=== PATIENT | female | born 1960 | race Caucasian/White ===

== ENCOUNTER → 2016-12-12 | Outpatient (CLI) | payer OTHER, MEDICAID | LOC: FIMAGING 07:01 | PROVIDERS: ATTEND Internal Medicine | DX: B18.2 Chronic viral hepatitis C (principal) ==

== ENCOUNTER 2016-12-26 12:28 | Emergency (ER) | payer OTHER, MEDICAID ==
--- NOTE | 2016-12-26 13:11 | EDPHY ---
H & P Time Seen by Provider: 12/26/16 12:54 HPI/ROS: CHIEF COMPLAINT: Chest pain HISTORY OF PRESENT ILLNESS: This patient is a 56 year old female with history of hypertension and congestive heart failure complaining of sharp chest pain. She woke up with a mild headache and neck pain. The headache is similar to prior episodes of migraine headaches. She came to the hospital for a routine blood tests and when she was leaving the hospital, she developed sudden onset sharp and stabbing left-sided chest pain. The chest pain was fleeting, lasting few seconds. She had 2 subsequent episodes of sharp chest pain. She has a very mild dull ache in her chest now. No fever, shortness of breath, vomiting, extremity swelling, or other associated condition. REVIEW OF SYSTEMS: Constitutional: No fever, no chills Eyes: No visual changes ENT: No sore throat Respiratory: No cough, no shortness of breath Gastrointestinal: No nausea, no vomiting, no abdominal pain Genitourinary: No hematuria, no dysuria Musculoskeletal: No leg pain or swelling Skin: No rash Neurological: Headache, no numbness, no weakness Psychiatric: No depression Past Medical/Surgical History: 1. Congestive heart failure (Lasix) 2. Hypertension 3. Hepatitis C Social History: Lives in [place]. Smoking Status: Current every day smoker Physical Exam: General Appearance: Alert, pleasant, does not appear in pain Eyes: Pupils equal and round, no conjunctival pallor or injection ENT, Mouth: Mucous membranes moist Neck: Normal inspection Respiratory: Normal inspection, no chest wall tenderness, lungs are clear to auscultation Cardiovascular: Regular rate and rhythm Gastrointestinal: Abdomen is soft and non- tender Neurological: A&O, nonfocal, normal gait Skin: Warm and dry, no rash Extremities: Nontender, no pedal edema, negative Homans sign Psychiatric: Mood and affect normal Constitutional: Initial Vital Signs Temperature (C) 36.8 C 12/26/16 12:33 Heart Rate 81 12/26/16 12:33 Respiratory Rate 16 12/26/16 12:33 Blood Pressure 129/100 H 12/26/16 12:33 O2 Sat (%) 97 12/26/16 12:33 O2 Delivery Mode Room Air Allergies/Adverse Reactions: No Known Drug Allergies Allergy (Verified 12/26/16 12:37) Home Medications: Medication Instructions Recorded Aspirin 81mg (*) 12/26/16 Lasix 12/26/16 Medical Decision Making - Diagnostics EKG Interpretation: EKG interpreted by me reveals normal sinus rhythm, rate 74, nonspecific T abnormalities, ant-lat leads. Interpretation: normal EKG Imaging Results: Chest x-ray independently reviewed by me reveals atelectasis at the left lung base. CT pulmonary angiogram read by Dr. Giuseppe Baeza reveals no evidence of pulmonary embolism. There is a thyroid mass. Imaging: Discussed imaging studies w/ lab intern Radiologist, I viewed and interpreted images myself ED Course/Re-evaluation: 56 year old female presenting follow three episodes of sharp chest pains earlier today and headache. Stat EKG reveals no evidence of ischemia or dysrhythmia. D-dimer ordered to screen for pulmonary embolism. Ibuprofen given for headache. Headache is typical of a mild migraine headache. Reviewed chest x-ray. Prominent interstitial markings to left lung base probably representing subsegmental atelectasis or fibrotic change. D-dimer is slightly high. Plan for CTA to rule out pulmonary infarct. 15:[address] Baeza, radiologist. CTA negative for acute processes. Incidental thyroid nodule noted. Discussed with patient need to follow up with her PCP. This patient presents with atypical chest pain. After careful consideration and evaluation, I find no evidence of acute coronary syndrome. The patient has no exertional chest pain, normal EKG and normal troponin. In addition, I feel that I can safely exclude pulmonary embolism, with normal vital signs, normal oxygen saturation and no evidence of pulmonary embolism on CT scan. Chest pain most likely musculoskeletal in etiology. In addition there is no evidence of pneumothorax, pneumonia, aortic dissection. Plan to discharge home in good condition. She will follow up with primary care regarding the thyroid nodule. Return precautions discussed. The patient is comfortable with this plan. Differential Diagnosis: The differential diagnosis for the patient's chest pain included but was not limited to myocardial ischemia, pulmonary embolus, chest wall pain, pleural inflammation, and pulmonary infectious causes. - Data Points Laboratory Results: Laboratory Results 12/26/16 13:00 12/26/16 13:00 Medications Given: Discontinued Medications Ibuprofen (Motrin) 600 mg PO EDNOW ONE Stop: 12/26/16 13:59 Last Admin: 12/26/16 14:59 Dose: 600 mg Departure - Departure Disposition: Home, Routine, Self-Care Clinical Impression: Musculoskeletal chest pain, Thyroid nodule Condition: Good Instructions: Chest Pain (ED) Additional Instructions: 1. The radiologist noted a thyroid nodule on your CT. Please follow up with your primary care physician regarding this. We are ordering a test of your thyroid level in your blood. Call tomorrow for results of this test (TSH). 2. You may take 600mg ibuprofen every 6-8 hours with food as needed for pain. 3. Follow up with your primary care provider for symptoms unresolved. 4. Return to the Emergency Department if you develop recurrent chest pains, shortness of breath, or other worsening of condition. Referrals: MARKBODY,BEAU [Other] - As per Instructions Dick Mcnulty MD [Medical Doctor] - As per Instructions Report Scribed for: Fatoumata Orantes Report Scribed by: Deisy Fong Date of Report: 12/26/16 Time of Report: 13:09 Physician Review and Approval Statement: 12/26/16 13:09 Portions of this note were transcribed by a medical receptionist medical assistant. I personally performed a history, physical exam, medical decision making, and confirmed accuracy of information the transcribed note.
[2016-12-26 13:53] LABS: % IMMATURE GRANULYOCYTES 0.5 % (0.0-1.1); ABSOLUTE IMMATURE GRANULOCYTES 0.03 10^3/uL (0.00-0.10); ADD DIFF? NO; ADD MORPH? NO; ADD SCAN? NO; ATYPICAL LYMPHOCYTE FLAG 0 (0-99); FRAGMENT RBC FLAG 0 (0-99); HEMATOCRIT 42.7 % (38.0-47.0); HEMOGLOBIN 14.7 g/dL (12.6-16.3); LEFT SHIFT FLG 0 (0-99); LIPEMIA HEMOLYSIS FLAG 90 (0-99); MEAN CELL HEMOGLOBIN 30.5 pg (27.9-34.1); MEAN CELL HEMOGLOBIN CONCENTR. 34.4 g/dL (32.4-36.7); MEAN CELL VOLUME 88.6 fL (81.5-99.8); MEAN PLATELET VOLUME 10.6 fL (8.7-11.7); PLATELET CLUMPS FLAG 0 (0-99); PLATELET COUNT 212 10^3/uL (150-400); RED BLOOD CELL COUNT 4.82 10^6/uL (4.18-5.33); RED CELL DISTRIBUTION WIDTH 12.2 % (11.5-15.2)
[2016-12-26] MEDS ORDERED: IBUPROFEN 600 MG TAB PO ONE (13:58)
[2016-12-26 14:00] LABS: ANION GAP 12 mEq/L (8-16); CALCIUM 9.7 mg/dL (8.5-10.4); CARBON DIOXIDE 23 mEq/l (22-31); CHLORIDE 110 mEq/L (97-110); CREATININE 0.9 mg/dL (0.6-1.0); GLOMERULAR FILTRATION RATE > 60; GLUCOSE 63 mg/dL (70-100); POTASSIUM 4.3 mEq/L (3.5-5.2); SODIUM 145 mEq/L (134-144)
[2016-12-26 14:12] LABS: TROPONIN I < 0.012 ng/mL (0-0.034)
[2016-12-26] MEDS ORDERED: IOPAMIDOL (ISOVUE 370) 100 ML BTL IV ONE (14:20)
[2016-12-26 15:01] VITALS: BP 107/83
[2016-12-26 15:25] VITALS: PULSE 72; RESP 18; TEMP 97; O2SAT 95
--- NOTE | 2016-12-28 08:49 | CPEKG ---
Heart Rate: 74 RR Interval: 811 P-R Interval: 156 QRSD Interval: 94 QT Interval: 383 QTC Interval: 425 P [place]: 45 QRS [place]: -11 T Wave [place]: 95 EKG Severity - ABNORMAL ECG - EKG Impression: SINUS RHYTHM EKG Impression: NONSPECIFIC T ABNORMALITIES, ANT-LAT LEADS Electronically Signed By: Shade Durán 29-Dec-2016 12:46:38
== END 2016-12-26 15:28 | disposition home or self-care (01) ==
DX: R07.9 Chest pain, unspecified (principal); E04.1 Nontoxic single thyroid nodule; F17.200 Nicotine dependence, unspecified, uncomplicated; I10 Essential (primary) hypertension; I50.9 Heart failure, unspecified
CPT/HCPCS: 71020; 71275; 93005; 99285; Q9967

== ENCOUNTER 2017-07-13 05:39 | Observation (INO) | payer OTHER, MEDICAID ==
[2017-07-13] MEDS ORDERED: LR 1,000 ML IV ONE (06:21)
--- NOTE | 2017-07-13 07:08 | PDANEPAE ---
ANE Past Medical History - Cardiovascular History Hx Hypertension: Yes Hx Arrhythmias: No Hx Chest Pain: No Hx Coronary Artery / Peripheral Vascular Disease: Yes Hx CHF / Valvular Disease: Yes Hx Palpitations: No - Pulmonary History Hx COPD: No Hx Asthma/Reactive Airway Disease: No Hx Recent Upper Respiratory Infection: No Hx Oxygen in Use at Home: No Hx Sleep Apnea: No Sleep Apnea Screening Result - Last Documented: Negative - Neurologic History Hx Cerebrovascular Accident: No Hx Seizures: No Hx Dementia: No - Endocrine History Hx Diabetes: No - Renal History Hx Renal Disorders: No - Liver History Hx Hepatic Disorders: No - Neurological & Psychiatric Hx Hx Neurological and Psychiatric Disorders: No - Cancer History Hx Cancer: No - Congenital Disorder History Hx Congenital Disorders: No - GI History Hx Gastrointestinal Disorders: No - Other Health History Other Health History: Goiter. Pneumonia 05/28 - Chronic Pain History Chronic Pain: No - Surgical History Prior Surgeries: hysterectomy. . cardiac cath 2009 ANE Review of Systems Review of Systems: - Exercise capacity METS (RN): 4 METS ANE Patient History - Allergies Allergies/Adverse Reactions: morphine Allergy (Mild, Verified 07/13/17 06:37) NAUSEA - Home Medications Home Medications: Aspirin EC [Aspirin EC 81 mg (*)] 81 mg PO DAILY 07/03/17 [Last Taken 07/12/17] Atorvastatin Calcium [Lipitor 10 mg (*)] 10 mg PO DAILY 07/03/17 [Last Taken ] Carvedilol [Coreg (*)] 6.25 mg PO BIDMEAL 07/03/17 [Last Taken 07/11/17] Losartan Potassium [Cozaar 25 mg (*)] 25 mg PO DAILY 07/03/17 [Last Taken ] Multivitamins [Multivitamin (*)] 1 each PO DAILY 07/03/17 [Last Taken 07/12/17] Spironolactone [Aldactone 25 MG (*)] 25 mg PO DAILY 07/03/17 [Last Taken ] traZODone [traZODONE 50MG (*)] 50 mg PO HS PRN 07/03/17 [Last Taken 07/12/17 19: 30] - NPO status NPO Since - Liquids (Date): 07/12/17 NPO Since - Liquids (Time): 19:30 NPO Since - Solids (Date): 07/12/17 NPO Since - Solids (Time): 19:30 - Smoking Hx Smoking Status: Former smoker - Family Anes Hx Family Hx Anesthesia Complications: none ANE Labs/Vital Signs - Vital Signs Blood Pressure: 112/85 Heart Rate: 77 Respiratory Rate: 16 O2 Sat (%): 96 Height: 157.48 cm Weight: 86.183 kg ANE Physical Exam - Airway Mallampati Score: Class 3 Mouth exam: dentures - ASA Status ASA Status: III ANE Anesthesia Plan Anesthesia Plan: general endotracheal anesthesia
[2017-07-13] MEDS ORDERED: BACITRACIN ZINC 14.2 GM OINTTUBE TP ONE (07:10)
[2017-07-13] MEDS ORDERED: LIDOCAINE 1% 300 MG/30 ML SDV ONE (07:10)
[2017-07-13] MEDS ORDERED: ceFAZolin 2 GM/SWFI 2 GM/20 ML SYR IVP ONE (07:14)
--- NOTE | 2017-07-13 07:16 | PDHPUP ---
History & Physical Update H&P update statement: This history and physical update is based on an assessment of the patient which was completed after admission or registration (within 24 hours), but prior to the surgery/procedure.
[2017-07-13] MEDS ORDERED: MIDAZOLAM 2 MG/2 ML VIAL ONE (07:22)
[2017-07-13] MEDS ORDERED: PROPOFOL 200 MG/20 ML VIAL ONE (07:23)
[2017-07-13] MEDS ORDERED: fentaNYL 100 MCG/2 ML INJ ONE ×3 (07:23→12:09)
[2017-07-13] MEDS ORDERED: ONDANSETRON 4 MG/2 ML VIAL ONE ×2 (07:27→13:16)
[2017-07-13] MEDS ORDERED: PHENYLEPHRINE HCL 100 MCG/ML SYR ONE (07:27)
[2017-07-13] MEDS ORDERED: ROCURONIUM 50 MG/5 ML VIAL ONE ×2 (07:27→08:43)
[2017-07-13] MEDS ORDERED: METOCLOPRAMIDE 10 MG/2 ML VIAL ONE (07:27)
[2017-07-13] MEDS ORDERED: DEXAMETHASONE 4 MG/ML VIAL ONE ×2 (08:04)
[2017-07-13] MEDS ORDERED: SUGAMMADEX SODIUM 200 MG/2 ML VIAL IVP ONE (10:23)
[2017-07-13] MEDS ORDERED: HYDROCOD/APAP 7.5/325 IN 15ML UDCUP PO PRN (10:33)
[2017-07-13] MEDS ORDERED: THROMBIN (BOVINE) 20,000 UNIT SPRAY TP ONE (10:55)
[2017-07-13] MEDS ORDERED: LR 500 ML IV PRN (11:40)
[2017-07-13] MEDS ORDERED: PROMETHAZINE HCL 25 MG/ML INJ IVP PRN ×2 (11:40→15:37)
[2017-07-13] MEDS ORDERED: NALOXONE HCL 0.4 MG/ML INJ IVP PRN (11:40)
--- NOTE | 2017-07-13 11:41 | POSTANESTH ---
Post Anesthetic Evaluation Cardiovascular Status: Normal, Stable Respiratory Status: Normal, Stable Level of Consciousness/Mental Status: Can Participate in Eval Pain Control: Adequate, Prn Tx Ordered Nausea/Vomiting Control: Adequate, Prn Tx Ordered Complications Possibly Related to Anesthesia: None Noted
[2017-07-13] MEDS: fentaNYL 100 MCG/2 ML INJ IVP PRN ×2 (12:10→12:31)
[2017-07-13] MEDS ORDERED: OXYCODONE/APAP 5/325 TAB ONE (13:03)
[2017-07-13] MEDS: OXYCODONE/APAP 5/325 TAB PO PRN ×2 (13:08→13:44)
[2017-07-13] MEDS: ONDANSETRON 4 MG/2 ML VIAL IVP PRN ×2 (13:17→17:16)
[2017-07-13] MEDS ORDERED: PROMETHAZINE HCL 25 MG TAB PO PRN (14:14)
[2017-07-13] MEDS ORDERED: SCOPOLAMINE HYDROBROMIDE 1 MG/3 DAYS PATCH TD SCH (14:15)
[2017-07-13] MEDS ORDERED: DEXAMETHASONE 10 MG/ML VIAL IVP ONE (14:30)
[2017-07-13] MEDS ORDERED: ACETAMINOPHEN 325 MG TAB PO PRN (15:15)
[2017-07-13] MEDS ORDERED: HYDROmorphONE/DILAUDID 1 MG/ML INJ IVP PRN ×2 (15:32→18:07)
[2017-07-13] MEDS: D5W 1/2 NS W/ 20 KCl/L 1,000 ML IV SCH (15:44)
[2017-07-13] MEDS: CALCIUM CARBONATE 500 MG CHEWABLE TAB PO PRN (18:25)
[2017-07-13] MEDS: CARVEDILOL 6.25 MG TAB PO SCH (18:32)
--- NOTE | 2017-07-13 18:41 | SOAPPROG ---
SOAP Progress Note Assessment/Plan: Assessment: Pt with very persistent nausea and vomiting after surgery. She also has a migraine and thses make her vomit as well. She is now under better pain control with IV Dilaudid. Plan: I expect her to be able to go home tomorrow. We will discharge her on oral calcium, 2 TUMS tid and recheck her calcium as needed. 07/13/17 18:36 Subjective: I have a head ache. Objective: Vital Signs Temp Pulse Resp BP Pulse Ox 36.3 C 85 18 122/84 H 97 07/13/17 16:40 07/13/17 16:40 07/13/17 16:40 07/13/17 16:40 07/13/17 16:40 07/12/17 07/13/17 07/14/17 05:59 05:59 05:59 Intake Total 1985 Output Total 1225 Balance 760 Pt sitting up in bed and speaking clearly. She denies symptoms of low calcium and has no breathing complains either. Her O2 is ow down to 2L per minute. Neck exam shows some bruising at the sternum, but no sign of recurrent hematoma. JASON only 30 ml since surgery. ICD10 Worksheet Patient Problems: Problems Problem Status Onset Goiter Acute Hypertension Acute Obesity Acute - ICD10 Problem Qualifiers (1) Goiter (2) Hypertension (3) Obesity
[2017-07-13] MEDS ORDERED: IBUPROFEN 600 MG TAB PO ONE (20:30)
[2017-07-13] MEDS: HYDROmorphONE/DILAUDID 1 MG/ML INJ IVP PRN (22:21)
--- NOTE | 2017-07-13 23:39 | GOP ---
[f rep st] OPERATIVE REPORT DATE OF OPERATION: SURGEON: Darin Putnam MD ANESTHESIA: General. PREOPERATIVE DIAGNOSIS: Thyroid goiter. POSTOPERATIVE DIAGNOSIS: Thyroid goiter. PROCEDURE PERFORMED: 1. Total thyroidectomy. 2. Left parathyroid reimplantation. 3. Evacuation of neck hematoma. FINDINGS: Patient has a very large thyroid goiter with majority of the goiter on the left side, but extending across the trachea into the right side as well. Both recurrent laryngeal nerves were ident ified and preserved. One of the left parathyroid glands was avulsed along on the thyroid capsule was reimplanted in the left sternocleidomastoid muscle. Immediately after the completion of the case, and prior to the extubation of the patient, she began c oughing on her endotracheal tube and had sudden onset of a neck hematoma. We, therefore, redraped th e patient and evacuated the hematoma. She was then extubated and taken to postop care in good condit ion. SPECIMENS: Right thyroid gland. ESTIMATED BLOOD LOSS: 300 mL. INDICATIONS: The patient is a 57-year-old woman with a slowly enlarging thyroid goiter causing the o nset of compressive symptoms. She presents for thyroidectomy in hopes of relieving her worsening com pressive symptoms. DESCRIPTION OF PROCEDURE: Patient taken the OR, positively identified, placed on monitors and genera l endotracheal anesthesia was induced. The patient was then prepped and draped in normal sterile fas hion. An incision was marked out along the anterior neck skin crease and infiltrated with 5 cc of 1% lidocaine with a 1:100,000 epinephrine. The skin was then sharply incised and dissection was edi d down through the platysma. Superior and inferior subplatysmal flaps were then raised and secured w [facility] stay sutures. The strap muscles were divided in the midline and elevated off the thyroid gland. The strap muscles were elevated off the right thyroid lobe exposing the superior vascular pedicle wh ich was isolated, clamped, cut, and ligated with a stick tie. The middle thyroid vein was then isola pastor, clamped, cut, and ligated. It was noted to be much larger than normal due to the increased vasc ularity of the thyroid in general. This was tied off and divided. The thyroid gland was then rotate d medially. The right thyroid lobe was then rotated medially. The recurrent laryngeal nerve was yosi ntified as was 1 of the parathyroid glands. I did not see the inferior gland. The zhang's ligament was divided. The gland was rotated medially. The inferior vessels were crossclamped and ligated and divided. The thyroid gland was then elevated off the trachea over to the midline. It was then note d that the left thyroid lobe which was where the goiter was originating was extending across the ante rior aspect of the trachea over to the left side. This was elevated away inferiorly using blunt diss ection, tying off and cauterizing vessels as required. The strap muscles were then elevated off the left thyroid lobe, tying off vessels as needed. It was mentioned earlier, the goiter had a significa nt number of prominent blood vessels. The superior vascular pedicle was isolated, clamped, cut, and ligated and the gland was rotated medially, dividing the middle thyroid vein. We then, at the point where the majority of the goiter was down below the sternum and the clavicle, using blunt dissection, swept below the gland and lifted it superiorly, delivering it from the neck. There was then brisk b leeding from the inferior aspect of the wound. We were able to isolate a small vascular trunk which appeared to be coming off the subclavian vein. This was cross clamped and ligated with 2-0 silk with good hemostasis. At this point, the recurrent laryngeal nerve was identified and the Gary's ligame nt divided. The gland was removed from the neck. I examined the gland itself and found a parathyroi d gland on the surface of the thyroid capsule. This was removed, divided into small pieces, and plac ed in the pocket in the left sternocleidomastoid muscle. The wound was irrigated with sterile saline. Moving slowly around the neck, we sewed off, or cauteri zed, the small oozing vessels as identified. When I was convinced that the hemostasis was good, we t hen placed a drain through a separate stab incision and I closed the wounds with 3-0 Vicryl, 4-0 Stephens cryl, and 5-0 Prolene. The case was then terminated and as the patient's anesthetic was being revers ed, she began coughing very vigorously and had sudden swelling of the neck. At this point, we re-pre pped her, draped once again. She had not been extubated, so the anesthesiologist simply deepened the anesthetic and I was able to open the wound, evacuate blood clot from neck and was able to identify 2 small bleeding vessels in the inferior aspect of the surgical bed. Both of them were small arteria ls. These were clipped with small hemoclips. The wound was irrigated yet again. Looking all around , I did not see any other bleeding sites. I then sprayed topical thrombin into the wound and closed the wound yet again. In this case, final skin closure was done using oscar followed by a pressure dressing. The case was then terminated. The anesthetic was discontinued. The patient was taken to postop care in good condition having tolerated the procedure well. COMPLICATIONS: Immediate postoperative neck hematoma. DRAINS: 10-Yoruba JASON drain. Copy requested to: Dr. Margie Betancur /[id number]/MODL
[2017-07-14] MEDS: HYDROmorphONE/DILAUDID 1 MG/ML INJ IVP PRN ×3 (00:36→07:12)
[2017-07-14] MEDS: CALCIUM CARBONATE 500 MG CHEWABLE TAB PO PRN (05:42)
[2017-07-14] MEDS: D5W 1/2 NS W/ 20 KCl/L 1,000 ML IV SCH (05:45)
[2017-07-14] MEDS ORDERED: SUMAtriptan 50 MG TAB PO ONE ×2 (08:34→12:00)
--- NOTE | 2017-07-14 08:37 | SOAPPROG ---
SOAP Progress Note Assessment/Plan: pt s/p total thyroid. Able to keep some jello down. Still has migraine. No numbness or tingling. o:- dressing removed. Dio pulled, new dressing applied. Plan: pt s/p totoal thyroid. We will plan for discharge this afternoon. i have given her Imitrex for her migraine. Discussed post op care. She is to take 2 tums tid on discharge. 07/14/17 08:35 Objective: Vital Signs Temp Pulse Resp BP Pulse Ox 37.0 C 74 16 106/66 95 07/14/17 07:10 07/14/17 07:10 07/14/17 07:10 07/14/17 07:10 07/14/17 07:10 07/13/17 07/14/17 07/15/17 05:59 05:59 05:59 Intake Total 2710 Output Total 1855 Balance 855 - Pending Discharge Pending Discharge Within 24 Hours: Yes Pending Discharge Date: 07/15/17 Pending Discharge Time: 11:00 ICD10 Worksheet Patient Problems: Problems Problem Status Onset Goiter Acute Hypertension Acute Obesity Acute
[2017-07-14] MEDS ORDERED: ATORVASTATIN CALCIUM 10 MG TAB PO SCH (09:00)
[2017-07-14] MEDS ORDERED: LOSARTAN POTASSIUM 25 MG TAB PO SCH (09:00)
[2017-07-14] MEDS ORDERED: SPIRONOLACTONE 25 MG TAB PO SCH (09:00)
[2017-07-14] MEDS: ONDANSETRON 4 MG/2 ML VIAL IVP PRN (09:28)
[2017-07-14] MEDS: CARVEDILOL 6.25 MG TAB PO SCH (10:00)
[2017-07-14 11:02] VITALS: TEMP 98.5
[2017-07-14] MEDS ORDERED: ACETAMINOPHEN 650 MG/20.3 ML UDCUP PO PRN (11:57)
--- NOTE | 2017-07-14 12:00 | PDHOMEO2F ---
Home Oxygen Face to Face Home Orders: I certify that a physician or a nurse practitioner or physician's assistant customer service manager has had a qkxe-dt-hpmo encounter with this patient on the date of this order due to the diagnosis listed, which relates to the primary reason the patient requires home oxygen. Alternative treatments have been tried, or considered, and deemed ineffective. It is anticipated that supplemental oxygen will result in improvement with treatment. Home oxygen qualifying diagnosis: hypoxemia SpO2 on room air (%): 86 Frequency of home oxygen needed: during sleep Home oxygen liters per minute: 1 Home oxygen delivery device: nasal cannula Concentrator: No E-tanks for mobility and back up: No I certify that, based on these findings, the home oxygen is medically necessary for this patient for the following length of time. Length of time home oxygen needed: 1 week (have rspiratory therapist complete)
[2017-07-14] MEDS: HYDROmorphONE/DILAUDID 2 MG TAB PO PRN ×2 (12:23→16:43)
--- NOTE | 2017-07-14 14:40 | PDHOMEO2F ---
Home Oxygen Face to Face Home Orders: I certify that a physician or a nurse practitioner or physician's administrative assistant coordinator has had a lasp-ac-cymq encounter with this patient on the date of this order due to the diagnosis listed, which relates to the primary reason the patient requires home oxygen. Alternative treatments have been tried, or considered, and deemed ineffective. It is anticipated that supplemental oxygen will result in improvement with treatment. Home oxygen qualifying diagnosis: post op hypoximia with CHF SpO2 on room air (%): 86% Frequency of home oxygen needed: continuous Home oxygen liters per minute: 1-2 Home oxygen delivery device: nasal cannula Concentrator: Yes E-tanks for mobility and back up: Yes If ordering portable O2, is the patient mobile in the home?: Yes I certify that, based on these findings, the home oxygen is medically necessary for this patient for the following length of time. Length of time home oxygen needed: 1 week
[2017-07-14 15:22] VITALS: BP 119/82; PULSE 65; RESP 20; O2SAT 91
[2017-07-14] MEDS ORDERED: CALCIUM CARBONATE 500 MG CHEWABLE TAB PO SCH (16:00)
--- NOTE | 2017-07-14 17:30 | ASDISCHSUM ---
Discharge Information Plan Status:Home with No Needs Medically Cleared to Leave: Discharge Date:07/14/2017 05:08 PM CM D/C Disposition:Home, Routine, Self-Care ADT D/C Disposition:Home, Routine, Self-Care Projected Discharge Date:07/14/2017 05:08 PM Transportation at D/C: Discharge Delay Reason: Follow-Up Date:07/14/2017 05:08 PM Discharge Slot: Final Diagnosis: Placement Information Patient Contact Information Contact Name:KALYN Relationship:Daughter Address: Work Phone: City: [facility] Phone: State/Zip Code: Email: Financial Information Financial Class: Primary Plan Desc:MEDICARE OUTPATIENT Primary Plan Number:[id number] Secondary Plan Desc:MEDICAID HEALTH FIRST RAT EXTERMINATOR Secondary Plan Number:[id number] Assessment Information Intervention Information
== END 2017-07-14 17:08 | disposition home or self-care (01) ==
LOC: F3E 05:39
PROVIDERS: ADMIT Otolaryngology; ATTEND Otolaryngology
PROC: 0GTK0ZZ Resection of Thyroid Gland, Open Approach (ICD-10-PCS; principal; 2017-07-13 07:30)
DX: E04.2 Nontoxic multinodular goiter (principal); I25.10 Atherosclerotic heart disease of native coronary artery without angina pectoris; I50.9 Heart failure, unspecified; I11.0 Hypertensive heart disease with heart failure; Z87.891 Personal history of nicotine dependence
CPT/HCPCS: 60240; J0171; J0690; J1100; J1170; J2250; J2370; J2405; J2550; J2704; J2765; J3010